=== PATIENT | female | born 1945 | race Asian ===

== ENCOUNTER 2017-03-26 21:03 | Observation (INO) | payer MEDICARE, OTHER ==
[~2017-03-26] VITALS: Ht 157.5 cm; Wt 73.7 kg
[2017-03-26] MEDS ORDERED: LEVO125T PO (21:18)
[2017-03-26] MEDS ORDERED: ALBUTEROL INHALER INH (21:18)
[2017-03-26] MEDS ORDERED: ASPI-496 PO (21:18)
[2017-03-26 21:53] LABS: BLOOD UREA NITROGEN 22 mg/dL (7-18)
[2017-03-26 22:05] LABS: IS PT STATUS REG ER OR PRE ER? YES
[2017-03-26] MEDS ORDERED: HYDR-3342 PO (22:51)
[2017-03-26] MEDS ORDERED: MORPHINE SULFATE 4 MG/ML, 1ML IVPush PRN (23:00)
[2017-03-26] MEDS ORDERED: ONDANSETRON 2MG/ML, 2ML IVPush PRN (23:00)
[2017-03-27] MEDS ORDERED: ENOXAPARIN 40 MG/0.4 ML SQ SCH
[2017-03-27] MEDS ORDERED: ACETAMINOPHEN 325 MG TABLET PO PRN
[2017-03-27] MEDS ORDERED: BISACODYL 10 MG SUPP PR PRN
[2017-03-27] MEDS ORDERED: LABETALOL 5MG/ML, 20ML IV PRN
[2017-03-27] MEDS ORDERED: DOCUSATE 100 MG CAPSULE PO PRN
[2017-03-27] MEDS ORDERED: POLYETHYLENE GLYCOL 17 GM PACKET PO PRN
[2017-03-27] MEDS ORDERED: TRAZODONE 50MG TABLET PO PRN
[2017-03-27 00:33] VITALS: BP 136/76
[2017-03-27] MEDS: ATORVASTATIN 80 MG TABLET PO SCH ×2 (01:15)
[2017-03-27] MEDS: SODIUM CHLORIDE 0.9% 1,000 ML IV SCH ×2 (01:15→12:30)
[2017-03-27] MEDS ORDERED: MAALOX/HYOSCYAMINE/LIDOCAINE 45 ML BOTTLE PO ONE (02:00)
[2017-03-27 03:48] VITALS: BP 133/74
[2017-03-27 05:11] LABS: ASPARTATE AMINO TRANSFERASE 27 U/L (15-37); BLOOD UREA NITROGEN 21 mg/dL (7-18)
[2017-03-27 05:24] LABS: IS PT STATUS REG ER OR PRE ER? NO
[2017-03-27] MEDS ORDERED: LEVOTHYROXINE 125 MCG TABLET PO SCH (06:00)
[2017-03-27] MEDS ORDERED: REGADENOSON 0.4 MG/5 ML SYRINGE ONE (08:31)
[2017-03-27 08:37] VITALS: BP 102/62
[2017-03-27] MEDS ORDERED: POTASSIUM CHLORIDE 20 MEQ TAB.ER.PRT PO ONE ×2 (09:00→14:00)
[2017-03-27] MEDS ORDERED: ASPIRIN 81 MG TABLET EC PO SCH (09:00)
[2017-03-27 11:37] LABS: IS PT STATUS REG ER OR PRE ER? NO
[2017-03-27] MEDS ORDERED: OMEP-110 PO (14:00)
== END 2017-03-27 15:43 | disposition home or self-care (01) ==
LOC: ED 22:44 → EDIP 23:00 → INTOOBSV 23:00 → 5SO 03-27 00:16
PROVIDERS: ADMIT Internal Medicine; ATTEND Internal Medicine
DX: R07.89 Other chest pain (principal); J45.20 Mild intermittent asthma, uncomplicated; E03.9 Hypothyroidism, unspecified; E78.5 Hyperlipidemia, unspecified; R94.6 Abnormal results of thyroid function studies; E89.0 Postprocedural hypothyroidism; R73.9 Hyperglycemia, unspecified; E87.6 Hypokalemia; D72.829 Elevated white blood cell count, unspecified; Z98.890 Other specified postprocedural states; Z87.891 Personal history of nicotine dependence
CPT/HCPCS: 36415; 71010; 78452; 80048; 80053; 82040; 83735; 83880; 84439; 84443; 84484; 85025; 93005; 93017; 96360; 96361; 96372; 99285; A9502; C9898; G0378; J1650; J2785; J7030

== ENCOUNTER → 2017-04-21 | Outpatient (CLI) | payer MEDICARE, OTHER ==
[~2017-04-21] MED LIST: ALBUTEROL INHALER INH; ASPI-496 PO; HYDR-3342 PO; LEVO125T PO; OMEP-110 PO
== END | disposition home or self-care (01) ==
LOC: CFH 13:05
PROVIDERS: ATTEND Student in an Organized Health Care Education/Training Program
DX: Z12.31 Encounter for screening mammogram for malignant neoplasm of breast (principal); Z98.890 Other specified postprocedural states
CPT/HCPCS: 77063; G0202

== ENCOUNTER → 2017-08-26 | Outpatient (CLI) | payer MEDICARE, OTHER | END | disposition home or self-care (01) | LOC: CFH 13:46 | PROVIDERS: ATTEND Student in an Organized Health Care Education/Training Program | DX: R14.0 Abdominal distension (gaseous) (principal); Z90.49 Acquired absence of other specified parts of digestive tract | CPT/HCPCS: 76830 ==

== ENCOUNTER 2020-07-09 22:06 | Observation (INO) | payer MEDICARE, OTHER ==
[~2020-07-09] VITALS: Ht 157.5 cm; Wt 75.4 kg
--- NOTE | 2020-07-09 22:30 | NUR ---
PT WITH C/O SOB/DIFFICULTY BEATHING AND CHEST PAIN WITH INHALER USE X 3 WEEKS.
[2020-07-09] MEDS ORDERED: NITROGLYCERIN 0.4 MG BOTTLE (25 TABS) SL PRN (23:00)
[2020-07-09] MEDS ORDERED: NITROGLYCERIN SINGLE TAB 0.4 MG SL ONE (23:14)
[2020-07-10 00:01] LABS: BASOPHILS # (AUTO) 0.09 x10^3/uL (0-0.1); BASOPHILS % (AUTO) 1 % (0-1); EOSINOPHILS # (AUTO) 0.19 x10^3/uL (0-0.4); EOSINOPHILS % (AUTO) 2 % (1-7); LYMPHOCYTES # (AUTO) 4.55 x10^3/uL (1-3.4); LYMPHOCYTES % (AUTO) 51 % (22-44); MD NO; MEAN CORPUSCULAR HEMOGLOBIN 28.3 pg (27.0-34.8); MEAN CORPUSCULAR VOLUME 85.7 fL (80-100); MEAN PLATELET VOLUME 8.3 fL (7.4-10.4); MONOCYTES # (AUTO) 0.84 x10^3/uL (0.2-0.8); MONOCYTES % (AUTO) 9 % (2-9); NEUTROPHILS # (AUTO) 3.36 x10^3/uL (1.8-6.8); NEUTROPHILS % (AUTO) 37 % (42-75); PLATELET COUNT 255 x10^3/uL (130-400); RED BLOOD COUNT 5.57 x10^6/uL (3.82-5.3); RED CELL DISTRIBUTION WIDTH 15.4 % (9.6-15.2)
[2020-07-10 00:06] LABS: ALANINE AMINOTRANSFERASE 46 U/L (12-78); ANION GAP 7 mmol/L (5-15); CALCIUM 8.7 mg/dL (8.5-10.1); CHLORIDE 107 mmol/L (98-107); CREATININE 0.98 mg/dL (0.55-1.02)
[2020-07-10 00:10] LABS: ALKALINE PHOSPHATASE 77 U/L (45-117); BILIRUBIN,TOTAL 0.3 mg/dL (0.2-1.0); TOTAL PROTEIN 8.6 g/dL (6.4-8.2); TROPONIN I < 0.015 ng/mL (0.000-0.045)
[2020-07-10] MEDS ORDERED: SODIUM CHLORIDE 0.9%, 500ML IVBOLUS ONE (00:30)
[2020-07-10] MEDS ORDERED: OMNIPAQUE 350 MG/ML, 75ML BOTTLE ONE (01:10)
--- NOTE | 2020-07-10 01:26 | NUR ---
PT STATES SHE IS FREE OF CHEST PAIN AT THIS TIME
[2020-07-10] MEDS ORDERED: ALPRAZOLAM (01:30)
[2020-07-10] MEDS ORDERED: CHOLESTEROL MED (01:31)
--- NOTE | 2020-07-10 01:42 | NUR ---
REPORT TO ALLEN LAM
[2020-07-10] MEDS ORDERED: morphine SULFATE 10 MG/ML, 1ML IV PRN (02:00)
[2020-07-10] MEDS ORDERED: NITROGLYCERIN SINGLE TAB 0.4 MG SL PRN (02:00)
[2020-07-10 02:25] LABS: CHOLESTEROL, TOTAL 227 mg/dL (140-239); TRIGLYCERIDES 243 mg/dL (50-200); VLDL CHOLESTEROL 49 mg/dL (0-25)
[2020-07-10 02:29] LABS: CHOL/HDL RATIO 4.8; HDL CHOL % 21 % (28-40); HDL CHOLESTEROL (DIRECT) 47 mg/dL (40-60); LDL CHOLESTEROL,CALCULATED 131 mg/dL (54-169); LDL/HDL RATIO 2.8 (0.5-3.0); TROPONIN I < 0.015 ng/mL (0.000-0.045)
--- NOTE | 2020-07-10 03:06 | NUR ---
Report given to ALLEN Rosas. Patient to be transferred to room 520-2.
[2020-07-10 03:30] VITALS: BP 148/82
[2020-07-10] MEDS ORDERED: NITROGLYCERIN 0.4 MG BOTTLE (25 TABS) SL PRN (03:30)
[2020-07-10] MEDS ORDERED: LEVOTHYROXINE 125 MCG TABLET PO SCH (06:00)
[2020-07-10 06:52] LABS: TROPONIN I < 0.015 ng/mL (0.000-0.045)
[2020-07-10 07:05] VITALS: BP 128/77
[2020-07-10] MEDS ORDERED: REGADENOSON 0.4 MG/5 ML SYRINGE ONE (08:27)
[2020-07-10] MEDS ORDERED: SODIUM CHLORIDE FLUSH 10ML SYR IVF SCH (09:00)
[2020-07-10] MEDS ORDERED: ASPIRIN 81 MG TABLET EC PO SCH (09:00)
[2020-07-10 13:52] VITALS: BP 120/56
[2020-07-10] MEDS ORDERED: TIOT18CA INH (14:33)
[2020-07-10] MEDS ORDERED: APIX5TAB PO (14:34)
[2020-07-10] MEDS ORDERED: METO25TA35 PO ×2 (14:34)
[2020-07-10] MEDS ORDERED: APIXABAN 5 MG TABLET PO SCH (21:00)
[2020-07-10] MEDS ORDERED: ATORVASTATIN 80 MG TABLET PO SCH (21:00)
== END 2020-07-10 17:41 | disposition home or self-care (01) ==
LOC: ED 07-10 00:17 → EDIP 07-10 02:09 → INTOOBSV 07-10 02:09 → 5SO 07-10 03:26
PROVIDERS: ADMIT Family Medicine; ATTEND Internal Medicine
DX: R07.89 Other chest pain (principal); R06.02 Shortness of breath; I48.0 Paroxysmal atrial fibrillation; J45.909 Unspecified asthma, uncomplicated; K80.20 Calculus of gallbladder without cholecystitis without obstruction; K44.9 Diaphragmatic hernia without obstruction or gangrene; E03.9 Hypothyroidism, unspecified; Z79.82 Long term (current) use of aspirin; Z79.899 Other long term (current) drug therapy; Z87.891 Personal history of nicotine dependence
CPT/HCPCS: 36415; 71045; 71275; 78452; 80053; 80061; 83605; 84145; 84484; 85025; 85379; 87040; 93005; 93017; 93306; 93356; 99285; A9502; G0378; J2785; J7040; Q9967

== ENCOUNTER 2020-11-26 17:53 | Emergency (ER) | payer MEDICARE, OTHER ==
[~2020-11-26] VITALS: Ht 157.5 cm; Wt 74.5 kg
[~2020-11-26 17:53] MED LIST changes: +ALPRAZOLAM; +APIX5TAB PO; +CHOLESTEROL MED; +METO25TA35 PO; +TIOT18CA INH
[2020-11-26 18:49] LABS: BASOPHILS % (AUTO) 2 % (0-1); EOSINOPHILS % (AUTO) 3 % (1-7); LYMPHOCYTES % (AUTO) 43 % (22-44); MEAN CORPUSCULAR HEMOGLOBIN 28.5 pg (27.0-34.8); MEAN CORPUSCULAR HGB CONC 33.7 g/dL (32.4-35.8); MEAN PLATELET VOLUME 7.8 fL (7.4-10.4); MONOCYTES % (AUTO) 10 % (2-9); NEUTROPHILS % (AUTO) 43 % (42-75); PLATELET COUNT 239 x10^3/uL (130-400); RED BLOOD COUNT 5.05 x10^6/uL (3.82-5.3); RED CELL DISTRIBUTION WIDTH 15.4 % (9.6-15.2)
[2020-11-26 18:58] LABS: ALANINE AMINOTRANSFERASE 39 U/L (12-78); ALBUMIN 3.8 g/dL (3.4-5.0); ANION GAP 6 mmol/L (5-15); CALCIUM 9.2 mg/dL (8.5-10.1); CHLORIDE 111 mmol/L (98-107); CREATININE 0.95 mg/dL (0.55-1.02)
[2020-11-26 18:59] LABS: MD NO
[2020-11-26 19:02] LABS: ALKALINE PHOSPHATASE 83 U/L (45-117); BILIRUBIN,TOTAL 0.4 mg/dL (0.2-1.0); TOTAL PROTEIN 8.1 g/dL (6.4-8.2); TROPONIN I < 0.015 ng/mL (0.000-0.045)
--- NOTE | 2020-11-26 19:36 | NUR ---
pt to room from lobby
--- NOTE | 2020-11-26 20:15 | NUR ---
FIRST ENCOUNTER WITH PT, PT HERE FOR C/O CHEST PAIN ON RIGHT SIDE. PLACED ON VITALS MONITORS. ER MD AT BEDSIDE.
[2020-11-26] MEDS ORDERED: MONT10TA96 PO (20:16)
[2020-11-26] MEDS ORDERED: HYDR12.59 PO (20:16)
[2020-11-26] MEDS ORDERED: RIVA20TA PO (20:16)
[2020-11-26] MEDS ORDERED: LEVO112T2 PO (20:16)
[2020-11-26 20:57] VITALS: BP 183/65
== END 2020-11-26 21:17 | disposition home or self-care (01) ==
LOC: ED 19:55
DX: J15.9 Unspecified bacterial pneumonia (principal); R07.89 Other chest pain; I48.91 Unspecified atrial fibrillation; I10 Essential (primary) hypertension; E78.5 Hyperlipidemia, unspecified; J45.909 Unspecified asthma, uncomplicated; Z87.891 Personal history of nicotine dependence
CPT/HCPCS: 36415; 71045; 80053; 83735; 84484; 85025; 93005; 99285